=== PATIENT | male | born 1960 | race Caucasian/White ===

== ENCOUNTER 2016-09-13 12:14 | Emergency (ER) | payer OTHER ==
[~2016-09-13 12:14] MED LIST: ALBUTEROL SULF8.5 G1 IH; ALBUTEROL2.5 MG/0.1 IH; BP MED; CARAFATE1 G/10 ML PO; CARAFATE1 GM/10 M1 PO; CATAPRES0.2 M1 PO; CEPHALEXIN500 M1 PO; CLONIDINE HCL0.2 MG PO; DEXTROAMPHETAMI PO; EPIPEN 2-P0.3 MG/0.3 IJ; HALOPERIDOL0.5 M1 PO; LOPRESSOR25 MG/TA7 PO; METOPROLOL TART25 M1 PO; METOPROLOL TART50 M2 PO; MIRTAZAPINE30 M1 PO; MONTELUKAST SOD10 MG PO; MUCINEX600 MG PO; OXYCODONE HCL5 MG PO; OXYCONTIN10 M1 PO; PERCOCET 5-3251 EACH PO; PRILOSEC OTC20 MG PO; PRILOSEC40 M1 PO; PROAIR HFA8.5 GM INH; PROTONIX40 M2 PO; REMERON15 M1 PO; REMERON30 M1 PO; SINGULAIR10 M1 PO; SINGULAIR10 MG PO; STOMACH MED; SYMBICORT 16010.2 GM INH; THEOCHRON200 MG PO; TRAMADOL HCL50 M2 PO; TUSSIN PO; ZOFRAN4 M2 PO; [UNRECOGNIZED DRUG - CODE] PO; [UNRECOGNIZED DRUG - OTHER] PO
[2016-09-13] MEDS ORDERED: NORCO 5-325 TA1 EACH PO (14:14)
[2017-01-07] MEDS ORDERED: CYMBALTA30 M1 PO (15:31)
[2017-01-07] MEDS ORDERED: LOPRESSOR50 M1 PO (15:32)
[2017-01-07] MEDS ORDERED: ADVIL PM CAPLE1 EACH PO (15:46)
[2017-01-07] MEDS ORDERED: ANACIN 400-321 EACH PO (15:48)
[2017-01-07] MEDS ORDERED: MARIJUANA INH (15:51)
[2017-01-09] MEDS ORDERED: TYLENOL325 M2 PO (16:17)
[2017-01-09] MEDS ORDERED: PROTONIX40 M2 PO (16:18)
== END 2016-09-13 14:24 ==
LOC: EDMED 12:14
DX: K62.5 Hemorrhage of anus and rectum (principal); K59.00 Constipation, unspecified; F11.90 Opioid use, unspecified, uncomplicated; I10 Essential (primary) hypertension; J44.9 Chronic obstructive pulmonary disease, unspecified